=== PATIENT | male | born 1970 | race Caucasian/White ===

== ENCOUNTER 2017-11-25 11:58 | Emergency (ER) | payer OTHER ==
[~2017-11-25 11:58] MED LIST: IBUP1TAB7 PO
[2017-11-25] MEDS ORDERED: METF1000 PO (12:10)
[2017-11-25] MEDS ORDERED: FENO50TA PO (12:10)
[2017-11-25] MEDS ORDERED: LISI10TA3 PO (12:10)
[2017-11-25] MEDS ORDERED: ASPI-516 CHEW (12:10)
[2017-11-25 12:18] VITALS: BP 157/75; PULSE 90; TEMP 98.1; O2SAT 100
--- NOTE | 2017-11-25 12:45 | PD ---
HPI Chief Complaint: Right knee pain Time Seen by Provider: 12:15 Travel History International Travel<30 days: No Contact w/Intl Traveler<30days: No Traveled to known affect area: No History of Present Illness HPI 46-year-old male presents for evaluation of right knee pain. He reports that one week ago he slipped in the shower and hyperextended his right knee. Since then he has had pain in his right knee which is worse when walking. Reports an occasional cracking/popping sensation in his right knee. Symptoms were worse today and this is what prompted evaluation. He denies any other injuries and he has no other complaints at this time. PFSH Past Medical History Arthritis: No Asthma: No Anxiety: No Depression: Yes Heart Rhythm Problems: Yes Cancer: No Cardiac Catheterization: No Cardiovascular Problems: Yes High Cholesterol: Yes Chest Pain: Yes Congestive Heart Failure: No COPD: No Cerebrovascular Accident: Yes (STROKE/TIA) Developmental Delay: Yes Diabetes: Yes (type 2) Diminished Hearing: No Gastrointestinal Disorders: No GERD: No Glaucoma: No Genitourinary: No Headaches: No Hepatitis: No Hiatal Hernia: No Hypertension: Yes Kidney Stones: No Musculoskeletal: No Neurologic: Yes Psychiatric: No Respiratory: No Migraines: Yes Renal Failure: No Seizures: No Sleep Apnea: No Thyroid Disease: No Ulcer: No Past Surgical History Other Surgery: Yes (HERNIA REPAIR, LIVER BIOPSY. Left baby toe bone spur) Social History Alcohol Use: Yes (OCCASIONAL) Tobacco Use: No Substance Use: No Allergies-Medications (Allergen,Severity, Reaction): Coded Allergies: No Known Allergies (Verified Adverse Reaction, Unknown, 11/25/17) Reported Meds & Prescriptions Reported Meds & Active Scripts Active Ibuprofen 800 Mg Tab 800 Mg PO Q6HR PRN Reported Aspirin 81 Mg Chew 81 Mg CHEW DAILY Lisinopril 10 Mg Tab 10 Mg PO DAILY Tricor (Fenofibrate) 145 Mg Tab 145 Mg PO DAILY Takw with food. Metformin (Metformin HCl) 1,000 Mg Tab 1,000 Mg PO BIDPC Review of Systems Musculoskeletal: Positive: Pain, Other (Positive for pain with range of motion) Neurologic: No: Paresthesia Physical Exam Narrative GENERAL: Well-developed well-nourished male in no acute distress SKIN: Warm and dry. CARDIOVASCULAR: Regular rate and rhythm. No murmur appreciated. RESPIRATORY: No accessory muscle use. Clear to auscultation. Breath sounds equal bilaterally. Extremities: Generalized tenderness to palpation the right knee. There is pain with flexion of the right knee past 90. There is no obvious laxity on anterior or posterior stress. Distal pulses and sensation preserved. Data Data Last Documented VS Vital Signs Date Time Temp Pulse Resp B/P (MAP) Pulse Ox O2 Delivery O2 Flow Rate FiO2 11/25/17 12:18 98.1 90 157/75 (102) 100 Orders Orders Knee, Complete (4vws) (11/25/17 ) Ed Discharge Order (11/25/17 13:35) MDM Medical Decision Making Medical Screen Exam Complete: Yes Emergency Medical Condition: Yes Medical Record Reviewed: Yes Differential Diagnosis Osteoarthritis, ligamentous disruption, meniscal disruption, sprain, tibial plateau fracture Narrative Course 46-year-old male with pain in the right knee, cracking and popping sensation in the right knee with movement ever since slipping in the shower 1 week ago and hyperextending his right knee. X-ray imaging is normal. The plan is to have him follow-up with his primary care physician to discuss outpatient MRI imaging. He has a knee brace and crutches at home. He is stable for discharge. Diagnosis Primary Impression: Internal derangement of right knee Additional Instructions: Crutches as needed. Take Tylenol Motrin for pain. As discussed, follow-up with primary care physician if symptoms persist outpatient MRI imaging may be warranted. Med/Other Pt SpecificInfo: No Change to Meds Disposition: 01 DISCHARGE HOME Condition: Stable Sergei Cash Nov 25, 2017 12:45
--- NOTE | 2017-11-25 13:19 | RADRPT ---
EXAM DATE/TIME: 11/25/2017 12:46 [facility] COMPARISON: No previous studies available for comparison. INDICATIONS : Right knee pain around patella after hyperextension 5 days ago. MEDICAL HISTORY : Hypertension. Diabetes mellitus type II. SURGICAL HISTORY : None. Hernia repair. Liver biopsy. ENCOUNTER: Initial ACUITY: 4 - 6 days PAIN SCORE: 5/10 LOCATION: Right knee FINDINGS: Four view examination of the right knee demonstrates no evidence of fracture or dislocation. Bony mi neralization is normal. The articular surfaces are intact. The suprapatellar soft tissues have a no rmal configuration. CONCLUSION: Negative exam. Abram Parham MD on November 25, 2017 at 13:17 Board Certified Radiologist. This report was verified electronically.
== END 2017-11-25 13:53 | disposition home or self-care (01) ==
LOC: NEPK 11:58
DX: M23.91 Unspecified internal derangement of right knee (principal); I10 Essential (primary) hypertension; E11.9 Type 2 diabetes mellitus without complications; Z79.84 Long term (current) use of oral hypoglycemic drugs
CPT/HCPCS: 73564; 99283